=== PATIENT | male | born 1950 | race Caucasian/White ===

== ENCOUNTER → 2024-04-16 | Outpatient (CLI) | payer MEDICARE, OTHER ==
--- NOTE | 2024-04-16 19:25 | MR ---
EXAMINATION TYPE: MR lumbar spine wo con DATE OF EXAM: 04/16/2024 2:22 PM CLINICAL INDICATION: Male, 73 years old with history of M54.50 Low back pain; Z87.81 Hx of compressio n fx, Rt buttocks pain into rt leg, sciatica COMPARISON: None TECHNIQUE: Multi planar, multi sequence imaging was performed utilizing: T1-weighted, T2-weighted, a nd turbo inversion recovery imaging of the lumbar spine. IV Contrast: cc . (None if empty) FINDINGS: Alignment: The lumbar vertebral bodies have preserved heights and straightening of the alignment. Cord: The conus medullaris and the distal spinal cord appear unremarkable with regards to their signa l intensity and morphology. Bones/Discs: Mild degeneration changes throughout the spine with osteophyte formation and facet joint arthropathy. Intervertebral disc signal is maintained. Reactive adjoining endplate edema most pronou nced at the adjoining endplates of L4 and L5. T12-L1: No evidence of significant spinal canal stenosis or neural foraminal stenosis. L1-L2: No evidence of significant spinal canal stenosis. Facet joint arthropathy mild bilateral neura l foraminal stenosis. L2-L3: No evidence of significant spinal canal stenosis. Facet joint arthropathy mild bilateral neura l foraminal stenosis. L3-L4: No evidence of significant spinal canal stenosis. Facet joint arthropathy mild bilateral neura l foraminal stenosis. L4-L5: Right foraminal disc protrusion/herniation with severe spinal canal stenosis. Series 301 image 12 L5-S1: The disc has a rounded posterior morphology without significant spinal canal stenosis. Facet j oint arthropathy with mild bilateral neural foraminal stenosis. No significant spinal canal or neural foraminal stenosis in the remainder of the visualized levels. Other findings: Left renal pelvis cyst. IMPRESSION: 1. L4-L5 right foraminal disc herniation with severe right neural foraminal stenosis. 2. No evidence for significant spinal canal stenosis. 3. 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 [facility], , 04/16/2024 7:23 PM
== END | disposition home or self-care (01) ==
LOC: RADMRIMAIN 13:21
PROVIDERS: ATTEND Family Medicine
CPT/HCPCS: 72148